=== PATIENT | female | born 1970 | race Caucasian/White ===

== ENCOUNTER 2017-06-22 08:49 | Outpatient (CLI) | payer MEDICAID ==
--- NOTE | 2017-06-22 11:57 | Mammography Report ---
BILATERAL DIGITAL DIAGNOSTIC MAMMOGRAM with CAD and LEFT BREAST ULTRASOUND: 06/22/17 08:58:00 CLINICAL: Left breast pain and history of a left breast cyst. COMPARISON:07/31/14 screening mammogram and 01/17/13 left breast ultrasound FINDINGS: The breasts are mostly fatty with a few bilateral scattered fibroglandular densities. Stable right upper parenchymal asymmetry with an adjacent biopsy clip and a stable left upper parenchymal asymmetry.No mass, architectural distortion or suspicious calcifications. Ultrasound of the left breast (including all four quadrants and the retroareolar area) was performed and demonstrated a 5 mm cyst at 2 o'clock 10 cm from the nipple which appears to correlate with the previously described 12 mm cyst at 2 o'clock 12 cm from the nipple. No other cysts and no solid mass or shadowing. IMPRESSION: A benign 5 mm cyst at 2 o'clock 10 cm from the nipple. Negative right breast. BI-RADS CATEGORY: 2 -- Benign RECOMMENDATION: Clinical followup and routine mammographic screening in one year. COMMENT: Patient follow-up letters are generated by our [employer] application.
== END 2017-06-22 08:50 | disposition home or self-care (01) ==
LOC: US 08:49
PROVIDERS: ATTEND Family Medicine
DX: N60.02 Solitary cyst of left breast (principal); N64.89 Other specified disorders of breast
CPT/HCPCS: 77066